=== PATIENT | male | born 1970 | race Caucasian/White ===

== ENCOUNTER 2019-03-14 01:21 | Emergency (ER) | payer MEDICAID ==
[~2019-03-14] VITALS: Ht 165.1 cm; Wt 75.4 kg
[~2019-03-14 01:21] MED LIST: ACET1TAB40 PO; ERYT1OIN6 RIGHT EYE; IBUP-1542 PO
[2019-03-14 01:31] VITALS: Ht 165.1 cm; Wt 75.4 kg
[2019-03-14] MEDS ORDERED: IBUPROFEN 600 MG TAB PO ONE (02:00)
[2019-03-14] MEDS ORDERED: DIPHTH/TET/ACEL PERTUSS (ADULT) 0.5 ML VIAL IM* ONE (02:00)
[2019-03-14] MEDS ORDERED: TETRACAINE 0.5% 4 ML OPH RIGHT EYE ONE (02:00)
[2019-03-14] MEDS ORDERED: ERYTHROMYCIN 1 GM OPH OINT RIGHT EYE ONE (03:00)
[2019-03-14] MEDS ORDERED: HYDROCODONE/APAP (5/325) TAB PO ONE (03:00)
[2019-03-14 03:04] VITALS: BP 134/76; PULSE 70; RESP 19
== END 2019-03-14 03:41 | disposition home or self-care (01) ==
LOC: FTE 01:21
DX: T15.01XA Foreign body in cornea, right eye, initial encounter (principal); X58.XXXA Exposure to other specified factors, initial encounter; Y92.9 Unspecified place or not applicable; Z23 Encounter for immunization
CPT/HCPCS: 65222; 90471; 90715; Z7502; Z7610